=== PATIENT | female | born 1995 | race American Indian/Alaskan Native ===

== ENCOUNTER 2018-10-06 13:11 | Outpatient (CLI) | payer MEDICAID ==
[2018-10-06] MEDS ORDERED: LACTATED RINGERS 500 ML IV ONE (13:20)
[2018-10-06 13:24] VITALS: BP 121/60
[2018-10-06 14:48] LABS: Bacteria,Urine 3+ /HPF (Negative); Bilirubin,Urine NEG (Negative); Blood,Urine NEG (Negative); Color,Urine Amber (Yellow); Mucus,Urine 3+ /HPF; Urobilinogen,Urine < 2.0 mg/dL (<2.0)
[2018-10-06] MEDS ORDERED: ROCEPHIN/NS 1 GM/50 ML 1 GM/50 ML BAG IV SCH (15:30)
[2018-10-06] MEDS ORDERED: TYLENOL PO ONE (15:33)
[2018-10-06] MEDS ORDERED: XYLOCAINE 1% MPF 5 mL INFILTRATI ONE (15:34)
[2018-10-06] MEDS ORDERED: ROCEPHIN IM SCH (15:45)
== END 2018-10-06 17:15 | disposition home or self-care (01) ==
LOC: TRG 13:11
PROVIDERS: ATTEND Obstetrics & Gynecology
DX: O26.893 Other specified pregnancy related conditions, third trimester (principal); R51 Headache; R25.2 Cramp and spasm; Z3A.35 35 weeks gestation of pregnancy
CPT/HCPCS: 59025; 81001; 87086; 96372; 96374; J0696

== ENCOUNTER 2018-11-04 19:30 | Observation (INO) | payer MEDICAID ==
[2018-11-04] MEDS ORDERED: LACTATED RINGERS 1,000 ML IV ONE (22:07)
--- NOTE | 2018-11-05 00:36 | History and Physical Report ---
History of Present Illness Date of examination: 11/05/18 Date of admission: 11/05/18 Chief complaint: Contractions and pressure History of present illness: Pt presents reporting intermittent contractions and pelvic pressure. Good FM, no LOF or bleeding. Coping well. SVE upon arrival was 3/70/-2, FHT category 1. After walking for 1 hour SVE was 3.5, 70/-2, FHT category 2 with multiple variable decels. Angelique q4-7 minutes. Positive accels and moderate variability, baseline >160bpm at one point. BPP was 8/8, DIONNA 12.7cm. is complicated by a [id number] right fundal subserosal fibroid. Medications include vitamin. 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 ([id number] fundal subserosal fibroid) Social history: no significant social history - Obstetrical History Expected Date of Delivery: 11/07/18 Actual Gestation: 39 Week(s) 5 Day(s) : 1 Medications and Allergies Allergies Allergy/AdvReac Type Severity Reaction Status Date / Time No Known Allergies Allergy Unverified 10/06/18 13:19 Home Medications Medication Instructions Recorded Confirmed Last Taken Type Vit-Fe Fumar-FA [ 1 tab PO DAILY 11/04/18 11/04/18 11/03/18 History Vitamin] Review of Systems All systems: negative Cardiovascular: no chest pain, no palpitations, no rapid/irregular heart beat, no edema, no shortness of breath Gastrointestinal: no abdominal pain, no nausea, no vomiting, no diarrhea, no constipation Genitourinary: no vaginal bleeding, no vaginal discharge, no leakage of fluid - Vital Signs Vital signs: Vital Signs Pulse Pulse Ox 102 H 97 11/04/18 19:42 11/04/18 19:42 Temp Pulse Resp BP Pulse Ox 98.1 F 105 H 20 126/75 97 11/04/18 21:35 11/05/18 00:26 11/04/18 21:35 11/05/18 00:16 11/05/18 00:26 - Physical Exam Breasts: Positive: deferred Cardiovascular: Regular rate, Normal S1, Normal S2, No murmurs Lungs: Positive: Clear to auscultation, Normal air movement Abdomen: Positive: normal appearance, soft Genitourinary (Female): Positive: normal external genitalia, normal perenium Vagina: Positive: normal moisture Uterus: Positive: normal size, normal contour Extremities: Positive: normal - Obstetrical FHR: category 2 Uterine Contraction Monitor Mode: External Uterine Contraction Pattern: Irregular Uterine Tone Measurement Phase: Resting Uterine Contraction Intensity: Mild Results All other labs normal. Assessment and Plan A: 23 yo at 39.5 wks EGA in early labor Category 2 FHT BPP reassuring GBS negative P: Admit to L&D for Pitocin induction as tolerated.
[2018-11-05] MEDS ORDERED: STADOL IV PRN (00:40)
[2018-11-05] MEDS ORDERED: PHENERGAN PO PRN ×2 (00:40→18:55)
[2018-11-05] MEDS ORDERED: MINERAL OIL PO PRN (00:40)
[2018-11-05] MEDS ORDERED: BRETHINE SUB-Q PRN (00:40)
[2018-11-05] MEDS ORDERED: SUBLIMAZE IV PRN (00:40)
[2018-11-05] MEDS ORDERED: NUBAIN IV PRN (00:40)
[2018-11-05] MEDS ORDERED: ZOFRAN IV PRN ×2 (00:40→18:55)
[2018-11-05] MEDS ORDERED: BRETHINE IVP PRN (00:40)
[2018-11-05] MEDS ORDERED: XYLOCAINE 2% INFILTRATI ONE (00:40)
[2018-11-05] MEDS ORDERED: NARCAN 0.4 MG/1 ML IV PRN (00:40)
[2018-11-05] MEDS ORDERED: PITOCin/NS 20 UNIT/1000ML DRIP 20 UNITS/1,000 ML BAG IV SCH ×2 (01:00→19:00)
[2018-11-05] MEDS ORDERED: PITOCin/NS 30 UNIT/500ML 30 UNITS/500 ML BAG IV SCH ×2 (01:00)
--- NOTE | 2018-11-05 01:12 | Ultrasound Report ---
PROCEDURE: US OB BPP WO NON-STRESS, US OB LIMITED TECHNIQUE: Limited sonographic evaluation of the abdomen was performed for biophysical profile. HISTORY: decelerations. COMPARISONS: None available. FINDINGS: Last menstrual period: 01/31/2018. Estimated date of delivery: 11/07/2018. Estimated gestational age: 39 weeks 4 days. Presentation: Cephalic. Biophysical profile: breathing movements: 2/2. movements: 2/2. posture and tone: 2/2. Qualitative amniotic fluid volume: 2/2. heart rate: 143 bpm. IMPRESSION: Total score for biophysical profile: 8/8. heart rate 143 bpm. This document is electronically signed by Henrique Greenberg DO., November 05 2018 01:09:57 AM ET
[2018-11-05] MEDS: LACTATED RINGERS 1,000 ML IV SCH ×3 (01:26→14:04)
[2018-11-05 01:29] LABS: Hematocrit 32.8 % (30.3-42.9); Hemoglobin 11.1 gm/dl (10.1-14.3); Mean Corpuscular HGB Conc 34 % (30-34); Mean Corpuscular Volume 82 fl (79-97); Platelet Count 182 K/mm3 (140-440); Red Blood Count 4.01 M/mm3 (3.65-5.03)
--- NOTE | 2018-11-05 08:47 | Event Note ---
Date: 11/05/18 Patient is resting well in bed No complaints cat2 strip -variable decles arom clear sve /-2 augment with pitocin close monitor - consulted concerning cat 2 strip counseled concerning need for csec , consents signed patient questions answered and agree with plan
[2018-11-05] MEDS ORDERED: NARCAN 2 MG/2 ML IV PRN (10:46)
--- NOTE | 2018-11-05 10:46 | Anesthesia Day of Surgery ---
Anesthesia Day of Surgery - Day of Surgery Patient Examined: Yes Patient H&P Reviewed: Yes Patient is NPO: Yes Beta Blockers: No Cardiac Clearance: No Pulmonary Clearance: No Steven's Test: N/A
--- NOTE | 2018-11-05 10:46 | Anesthesia Consultation ---
Anesthesia Consult and Med Hx - Airway Anesthetic Teeth Evaluation: Good ROM Head & Neck: Adequate Mental/Hyoid Distance: Adequate Mallampati Class: Class I Intubation Access Assessment: Good - Pulmonary Exam CTA: Yes - Cardiac Exam Cardiac Exam: RRR - Pre-Operative Health Status Proposed Anesthetic Plan: Epidural - Pulmonary Hx Asthma: No COPD: No Hx Pneumonia: No - Cardiovascular System Hx Hypertension: No - Central Nervous System Hx Seizures: No Hx Psychiatric Problems: No - Endocrine Hx Renal Disease: No Hx End Stage Renal Disease: No Hx Hypothyroidism: No Hx Hyperthyroidism: No - Hematic Hx Anemia: No Hx Sickle Cell Disease: No - Other Systems Hx Alcohol Use: No
[2018-11-05] MEDS ORDERED: MARCAINE 0.25% INFILTRATI ONE (10:53)
[2018-11-05] MEDS ORDERED: fentaNYL-BUPIV 2 MCG/ML-0.125% 200 MCG/100 ML BAG EPIDURAL SCH (11:00)
[2018-11-05] MEDS ORDERED: CYTOTEC PR ONE (18:15)
[2018-11-05] MEDS ORDERED: PHENERGAN PR PRN (18:55)
[2018-11-05] MEDS ORDERED: MILK OF MAGNESIA PO PRN (18:55)
[2018-11-05] MEDS ORDERED: TYLENOL PO PRN (18:55)
[2018-11-05] MEDS ORDERED: LANSINOH TP PRN (18:55)
[2018-11-05] MEDS ORDERED: DULCOLAX PR PRN (18:55)
[2018-11-05] MEDS ORDERED: PERCOCET 5/325 PO PRN (18:55)
[2018-11-05] MEDS ORDERED: BENADRYL PO PRN (18:55)
[2018-11-05] MEDS ORDERED: NORCO 5/325 PO PRN (18:55)
[2018-11-05] MEDS ORDERED: TORADOL IV PRN (18:55)
[2018-11-05] MEDS ORDERED: ANUCORT-HC PR PRN (18:55)
[2018-11-05] MEDS ORDERED: SODIUM CHLORIDE FLUSH SYRINGE 10 ML IV NR (19:00)
[2018-11-05] MEDS: SENOKOT S PO SCH (19:00)
--- NOTE | 2018-11-05 19:03 | Procedure Note ---
OB Delivery Note - Delivery Date of Delivery: 11/05/18 Surgeon: GRETA SHORT Estimated blood loss: 300cc - Vaginal Delivery presentation: vertex Delivery position: OA Intrapartum events: shoulder dystocia Delivery induction: oxytocin Delivery monitor: external FHT, external uterine Route of delivery: vacuum extraction Delivery placenta: spontaneous Delivery cord: 3 umbilical vessels Episiotomy: none Delivery laceration: 2nd degree Delivery repair: vicryl Anesthesia: epidural Delivery comments: 23 y/o now P1 experienced vacuum delivery over 2 MLE on (11/05/18) @ (1814). Due to NRFHT, the vacuum was placed at (+2) station, (FANNY) position after bladder emptied and anesthesia found to be adequate. was delivered within two pull without complication. The infant's head was delivered in a controlled manner. Ursula and suprapubic pressure used for noted shoulder dystocia The OP and nares were then bulb suctioned on the perineum. Amniotic fluid was clear. Nuchal cord was noted x1 around neck and body. The cord was clamped and cut. The was handed to the pediatric team in attendance. The placenta delivered intact with 3VC followed by 40 units of Pitocin IV and uterine massage, and 800 ug cytotec for hemostasis at 1817. EBL= 300. The 2nd degree laceration was repaired in the usual manner with a 2-0 vicryl. The , viable female Apgars 7 and 9 and weight 7 pounds 10 oz. Patient and baby bonding with great hemostasis. Baby evaluated and using all arm motions - A at 1 minute: 7 at 5 minutes: 9 Gender: Female (7 pounds 10 oz)
[2018-11-05] MEDS: COLACE PO SCH (21:38)
[2018-11-05] MEDS: TUCKS PAD TP PRN (21:38)
[2018-11-05] MEDS: IBUPROFEN PO SCH (21:38)
[2018-11-06] MEDS: IBUPROFEN PO SCH ×2 (05:42→12:44)
[2018-11-06] MEDS ORDERED: M-M-R II VACCINE SUB-Q ONE (06:00)
[2018-11-06] MEDS ORDERED: BOOSTRIX IM ONE (06:00)
[2018-11-06 08:46] LABS: Hematocrit 28.1 % (30.3-42.9); Hemoglobin 9.5 gm/dl (10.1-14.3)
[2018-11-06] MEDS: SENOKOT S PO SCH (09:18)
[2018-11-06] MEDS: PRENATAL VITAMIN PO SCH (09:18)
[2018-11-06] MEDS: COLACE PO SCH (09:18)
--- NOTE | 2018-11-06 11:27 | Progress Note ---
Assessment and Plan A/P PPD#1 s/p Doing well d/c home tomorrow Subjective - Subjective Date of service: 11/06/18 Principal diagnosis: Patient reports: appetite normal, voiding normally, pain well controlled, ambulating normally : doing well Objective - Vital Signs Latest vital signs: Vital Signs Temp Pulse Resp BP BP BP Pulse Ox 11/06/18 07:19 98.7 F 83 20 110/64 96 11/06/18 06:42 18 11/06/18 05:42 18 11/05/18 22:38 18 11/05/18 21:38 18 11/05/18 21:20 98.6 F 103 H 20 131/81 100 11/05/18 20:36 105 H 141/67 11/05/18 20:21 99 H 131/68 11/05/18 20:06 88 140/73 11/05/18 19:51 87 130/76 11/05/18 19:36 93 H 133/92 11/05/18 19:21 86 125/55 11/05/18 19:06 94 H 130/57 11/05/18 18:51 100 H 130/78 11/05/18 18:42 95 H 100 11/05/18 18:37 100 H 99 11/05/18 18:36 91 H 138/81 11/05/18 18:32 101 H 98 11/05/18 18:27 98 H 100 11/05/18 18:22 108 H 98 11/05/18 18:21 109 H 136/78 11/05/18 18:17 131 H 100 11/05/18 18:12 115 H 99 11/05/18 18:07 113 H 100 11/05/18 18:02 105 H 100 11/05/18 18:00 98.2 F 113 H 133/95 11/05/18 17:57 103 H 99 11/05/18 17:52 108 H 100 11/05/18 17:47 102 H 99 11/05/18 17:42 105 H 100 11/05/18 17:37 110 H 100 11/05/18 17:32 99 H 98 11/05/18 17:29 100 H 127/64 11/05/18 17:27 120 H 100 11/05/18 17:22 97 H 99 11/05/18 17:17 118 H 98 11/05/18 17:12 115 H 97 11/05/18 17:07 111 H 98 11/05/18 17:04 99 H 94 11/05/18 17:02 106 H 96 11/05/18 16:59 92 H 124/65 11/05/18 16:57 96 H 97 11/05/18 16:53 102 H 94 11/05/18 16:52 102 H 95 11/05/18 16:47 116 H 94 11/05/18 16:42 97 H 98 11/05/18 16:41 125 H 94 11/05/18 16:37 98 H 94 11/05/18 16:32 99 H 93 11/05/18 16:29 103 H 135/73 92 11/05/18 16:27 102 H 96 11/05/18 16:22 103 H 97 11/05/18 16:17 113 H 97 11/05/18 16:12 104 H 98 11/05/18 16:07 127 H 94 11/05/18 16:02 121 H 95 11/05/18 16:00 110 H 117/60 11/05/18 15:57 107 H 95 11/05/18 15:52 89 95 11/05/18 15:47 125 H 98 11/05/18 15:43 100 H 94 11/05/18 15:42 106 H 95 11/05/18 15:37 116 H 96 11/05/18 15:32 110 H 98 11/05/18 15:30 106 H 134/67 11/05/18 15:27 98 H 96 11/05/18 15:23 122 H 94 11/05/18 15:22 94 H 96 11/05/18 15:17 107 H 99 11/05/18 15:12 99 H 99 11/05/18 15:07 93 H 96 11/05/18 15:02 100 H 96 11/05/18 15:01 96 H 141/84 11/05/18 14:57 94 H 98 11/05/18 14:52 94 H 98 11/05/18 14:47 94 H 98 11/05/18 14:42 95 H 98 11/05/18 14:37 97 H 98 11/05/18 14:32 99 H 98 11/05/18 14:30 96 H 131/77 11/05/18 14:27 97 H 96 11/05/18 14:22 106 H 98 11/05/18 14:17 89 100 11/05/18 14:12 114 H 98 11/05/18 14:07 89 99 11/05/18 14:02 97 H 98 11/05/18 14:00 93 H 130/60 11/05/18 13:57 87 97 11/05/18 13:52 98 H 131/67 99 11/05/18 13:47 119 H 100 11/05/18 13:42 103 H 98 11/05/18 13:37 121 H 97 11/05/18 13:32 99 H 98 11/05/18 13:30 109 H 138/94 11/05/18 13:27 103 H 98 11/05/18 13:22 96 H 98 11/05/18 13:17 109 H 98 11/05/18 13:12 103 H 100 11/05/18 13:07 93 H 99 11/05/18 13:02 98 H 100 11/05/18 13:00 93 H 135/78 11/05/18 12:57 92 H 100 11/05/18 12:52 82 99 11/05/18 12:47 86 100 11/05/18 12:42 84 100 11/05/18 12:37 97 H 100 11/05/18 12:32 97 H 100 11/05/18 12:30 94 H 109/58 11/05/18 12:27 88 100 11/05/18 12:22 96 H 100 11/05/18 12:17 94 H 99 11/05/18 12:12 103 H 99 11/05/18 12:10 98.0 F 94 H 16 132/68 132/68 11/05/18 12:07 87 100 11/05/18 12:02 91 H 100 11/05/18 12:00 90 130/85 11/05/18 11:57 87 100 11/05/18 11:52 93 H 100 11/05/18 11:47 87 100 11/05/18 11:42 92 H 100 11/05/18 11:37 90 99 11/05/18 11:32 96 H 100 11/05/18 11:29 84 128/71 11/05/18 11:27 97 H 133/73 99 Intake and Output 11/05/18 11/06/18 11/06/18 23:59 07:59 15:59 Intake Total 360 120 Output Total 1100 600 Balance -1100 -240 120 Intake: Oral 120 Intake, Free Water 360 Output: Urine 1100 600 Indwelling Catheter 300 Void 800 600 Other: Total, Intake Amount 120 Total, Output Amount 800 600 # Voids Void 1 1 Estimated Blood Loss 300 - Exam Breasts: Present: normal Cardiovascular: Present: Regular rate, Normal S1 Lungs: Present: Clear to auscultation, Normal air movement Abdomen: Present: normal appearance, soft, normal bowel sounds. Absent: distention, tenderness, guarding Uterus: Present: normal, firm, fundal height below umbilicus. Absent: bogginess, tenderness Extremities: Present: normal Deep Tendon Reflex Grade: Normal +2 - Labs Labs: Abnormal lab results 11/06/18 Range/Units 07:24 Hgb 9.5 L (10.1-14.3) gm/dl Hct 28.1 L (30.3-42.9) %
--- NOTE | 2018-11-06 11:28 | Discharge Summary ---
Providers - Providers Date of Admission: 11/05/18 00:50 Date of discharge: 11/07/18 Attending physician: RITU NGUYEN Primary care physician: RITU NGUYEN Hospitalization Reason for admission: active labor Delivery: vacuum extraction Episiotomy: none Laceration: 2nd degree Incision: normal, dry, intact Other procedures: none complications: none Discharge diagnosis: IUP at term delivered [place] baby: female Hospital course: Patient had a vavd with 2nd degree laceration. patient did well and discharged home day 2. Condition at discharge: Good Disposition: DC-01 TO HOME OR SELFCARE Plan - Discharge Medications Prescriptions: Ferrous Sulfate [Feosol 325 MG tab] 325 mg PO BID #30 tablet Ibuprofen [Motrin] 600 mg PO Q8H PRN #30 tablet PRN Reason: Pain oxyCODONE /ACETAMINOPHEN [Percocet 5/325] 1 tab PO Q6HR PRN #30 tablet PRN Reason: Pain - Provider Discharge Summary Additional instructions: [] Smoking cessation referral if applicable(refer to patient education folder for contact #) [] Refer to [facility]'s [facility] Booklet Call your doctor immediately for: * Fever > 100.5 * Heavy vaginal bleeding ( >1 pad per hour) * Severe persistent headache * Shortness of breath * Reddened, hot, painful area to leg or breast * Drainage or odor from incision. * Keep incision clean and dry at all times and follow doctor's instructions regarding bathing/showering - Follow up plan Follow up: RITU NGUYEN MD [Primary Care Provider] - 7 Days
[2018-11-07] MEDS: IBUPROFEN PO SCH ×2 (01:00→06:44)
[2018-11-07] MEDS: COLACE PO SCH (09:48)
[2018-11-07] MEDS: SENOKOT S PO SCH (09:48)
[2018-11-07] MEDS: PRENATAL VITAMIN PO SCH (09:48)
[2018-11-07] MEDS: TUCKS PAD TP PRN (12:14)
[2018-11-07 14:07] VITALS: BP 114/68
== END 2018-11-07 14:40 | disposition home or self-care (01) ==
LOC: TRG 19:30 → LD 11-05 00:50 → INTOOBSV 11-05 00:50 → OB 11-05 21:10
PROVIDERS: ADMIT Obstetrics & Gynecology; ATTEND Obstetrics & Gynecology
DX: O80 Encounter for full-term uncomplicated delivery (principal); Z37.0 Single live birth
CPT/HCPCS: 36415; 59409; 76815; 76819; 85014; 85018; 85027; 86592; 86850; 86900; 86901; 88307; 90471; 90715; 96365; 96366; A6250; G0378; J2590; J7120